=== PATIENT | male | born 1960 | race Caucasian/White ===

== ENCOUNTER 2019-05-11 10:04 | Inpatient (IN) ==
[2019-05-11] MEDS ORDERED: ONDANSETRON 4 MG/2 ML VIAL IV PRN (12:03)
[2019-05-11] MEDS ORDERED: ACETAMINOPHEN 325 MG TABLET PO PRN (12:03)
[2019-05-11 13:18] LABS: Basophils # 0.1 10*3/uL (0.0-0.2); Basophils % 0.9 % (0.0-0.8); Eosinophils # 0.6 10*3/uL (0.0-0.87); Eosinophils % 6.3 % (0.00-10.9); Hematocrit 27.6 VOL% (42.0-52.0); Hemoglobin 8.9 GM/DL (14.0-18.0); Immature Granulocytes % 1.1 %; Lymphocytes # 1.9 10*3/uL (1.4-4.0); Lymphocytes % 20.2 % (21.2-54.2); Mean Corpuscular HGB Conc 32.2 GM/DL (32-36); Mean Corpuscular Volume 105.7 FL (87-102); Mean Platelet Volume 10.4 FL (9.6-12.0); Monocytes % 11.5 % (1.7-12.7); Platelet Count 341 T/CUMM (130-400); Red Blood Count 2.61 MC/CUMM (3.8-5.5); Red Cell Distribution Width 12.5 % (9.3-17.3); White Blood Count 9.2 T/CUMM (4-12)
[2019-05-11 13:31] LABS: PT Patient Result 10.7 SECS (9.6-12.2)
[2019-05-11 13:53] LABS: Albumin 3.9 G/DL (3.4-5.0); Bilirubin,Total 0.8 MG/DL (0.2-1.0); Calcium 9.2 MG/DL (8.5-10.1); Osmolality,Calculated 312.8 MOS/KG (273-304); Total Protein 7.8 G/DL (6.4-8.3)
[2019-05-11 16:37] LABS: Hepatitis B Core IgM Quant < 0.05 Index; Hepatitis B Surface Ag Quant < 0.10 Index; Hepatitis B Surface Ag Result Negative (Negative); Hepatitis C Virus Ab Result Negative (Negative)
[2019-05-11 16:52] LABS: Apearance,Urine CLEAR (Clear); Bacteria,Urine Occasional /HPF (Few); Bilirubin,Urine Negative (Negative); Blood, Urine Small mg/dL (Negative); Glucose,Urine (UA) 50 mg/dL (Negative); Hyaline Casts,Urine 1 /LPF (0-3); Ketones,Urine Negative (Negative); Mucus,Urine Occasional /LPF (Occasional); Nitrite,Urine Negative (Negative); Protein,Urine 30 MG/DL; RBC,Urine 1 /HPF (0-4); Squamous Epithelial Cell,Urine Occasional /HPF (0-10); Urine Color Yellow (Yellow); Urine Specific Gravity 1.011 (1.001-1.035); Urine Urobilinogen < 2.0 EU/DL (0.2-1.0); WBC,Urine 2 /HPF (0-6)
[2019-05-11] MEDS: diphenhydrAMINE 2% CREAM 28 GM TUBE TOP PRN (18:09)
[2019-05-11] MEDS: SODIUM CHLORIDE 0.45% 1,000 ML IV SCH (18:09)
[2019-05-11 18:58] LABS: Protein/Creatinine Ratio,Urine 0.6 RATIO
[2019-05-11] MEDS: DOCUSATE SODIUM 100 MG CAPSULE PO SCH (20:55)
[2019-05-11] MEDS ORDERED: APIXABAN 5 MG TABLET PO SCH (21:00)
[2019-05-11] MEDS ORDERED: ATORVASTATIN 40 MG TABLET PO SCH (21:00)
[2019-05-12 05:56] LABS: Basophils # 0.1 10*3/uL (0.0-0.2); Basophils % 0.7 % (0.0-0.8); Eosinophils # 0.7 10*3/uL (0.0-0.87); Eosinophils % 8.1 % (0.00-10.9); Hematocrit 25.6 VOL% (42.0-52.0); Hemoglobin 8.2 GM/DL (14.0-18.0); Immature Granulocytes % 0.7 %; Immature Granulocytes Absolute 0.06 #; Lymphocytes # 1.9 10*3/uL (1.4-4.0); Lymphocytes % 23.3 % (21.2-54.2); Mean Corpuscular Volume 104.9 FL (87-102); Mean Platelet Volume 10.8 FL (9.6-12.0); Monocytes % 14.6 % (1.7-12.7); Neutrophils % 52.6 % (38.7-73.9); Platelet Count 307 T/CUMM (130-400); Red Blood Count 2.44 MC/CUMM (3.8-5.5); Red Cell Distribution Width 12.4 % (9.3-17.3); White Blood Count 8.2 T/CUMM (4-12)
[2019-05-12 06:21] LABS: Albumin 3.5 G/DL (3.4-5.0); Bilirubin,Total 1.1 MG/DL (0.2-1.0); Calcium 8.8 MG/DL (8.5-10.1); Osmolality,Calculated 316.1 MOS/KG (273-304); Total Protein 7.1 G/DL (6.4-8.3)
[2019-05-12] MEDS ORDERED: carvediloL 25 MG TABLET PO SCH (08:00)
[2019-05-12] MEDS ORDERED: DILTIAZEM CD 180 MG CAPSULE PO SCH (09:00)
[2019-05-12] MEDS ORDERED: ASPIRIN EC 81 MG TABLET PO SCH (09:00)
[2019-05-12] MEDS: FOLIC ACID 0.4 MG TABLET PO SCH (09:42)
[2019-05-12] MEDS: diphenhydrAMINE 2% CREAM 28 GM TUBE TOP PRN (09:43)
[2019-05-12] MEDS: PANTOPRAZOLE 40 MG TABLET PO SCH (09:43)
[2019-05-12] MEDS: predniSONE 5 MG TABLET PO SCH (09:43)
[2019-05-12] MEDS: DOCUSATE SODIUM 100 MG CAPSULE PO SCH ×2 (09:43→22:42)
[2019-05-12] MEDS: DILTIAZEM CD 180 MG CAPSULE PO SCH (21:31)
[2019-05-13 05:24] LABS: Basophils # 0.1 10*3/uL (0.0-0.2); Basophils % 0.9 % (0.0-0.8); Eosinophils # 0.6 10*3/uL (0.0-0.87); Eosinophils % 7.1 % (0.00-10.9); Hematocrit 25.5 VOL% (42.0-52.0); Hemoglobin 8.2 GM/DL (14.0-18.0); Immature Granulocytes % 0.6 %; Immature Granulocytes Absolute 0.05 #; Lymphocytes # 1.9 10*3/uL (1.4-4.0); Lymphocytes % 22.1 % (21.2-54.2); Mean Corpuscular HGB Conc 32.2 GM/DL (32-36); Mean Corpuscular Volume 105.8 FL (87-102); Mean Platelet Volume 10.6 FL (9.6-12.0); Monocytes % 14.3 % (1.7-12.7); Platelet Count 313 T/CUMM (130-400); Red Blood Count 2.41 MC/CUMM (3.8-5.5); Red Cell Distribution Width 12.3 % (9.3-17.3); White Blood Count 8.7 T/CUMM (4-12)
[2019-05-13 05:59] LABS: Albumin 3.6 G/DL (3.4-5.0); Osmolality,Calculated 314.1 MOS/KG (273-304); Total Protein 7.3 G/DL (6.4-8.3)
[2019-05-13] MEDS ORDERED: diphenhydrAMINE CAP 25 MG CAPSULE PO ONE (08:30)
[2019-05-13] MEDS: FOLIC ACID 0.4 MG TABLET PO SCH (09:19)
[2019-05-13] MEDS: PANTOPRAZOLE 40 MG TABLET PO SCH (09:20)
[2019-05-13] MEDS: DILTIAZEM CD 180 MG CAPSULE PO SCH ×2 (09:20→21:40)
[2019-05-13] MEDS: predniSONE 5 MG TABLET PO SCH (09:20)
[2019-05-13] MEDS: DOCUSATE SODIUM 100 MG CAPSULE PO SCH ×2 (09:20→21:41)
[2019-05-13 14:15] LABS: Myeloperoxidase Antibody < 0.2 U
[2019-05-13] MEDS: SODIUM CHLORIDE 0.45% 1,000 ML IV SCH ×2 (17:08→21:19)
[2019-05-14] MEDS: SODIUM CHLORIDE 0.45% 1,000 ML IV SCH ×2 (03:02→12:57)
[2019-05-14 05:33] LABS: Basophils # 0.1 10*3/uL (0.0-0.2); Basophils % 0.6 % (0.0-0.8); Eosinophils # 0.7 10*3/uL (0.0-0.87); Eosinophils % 7.6 % (0.00-10.9); Hematocrit 24.1 VOL% (42.0-52.0); Hemoglobin 7.8 GM/DL (14.0-18.0); Immature Granulocytes % 0.5 %; Immature Granulocytes Absolute 0.05 #; Lymphocytes % 20.9 % (21.2-54.2); Mean Corpuscular HGB Conc 32.4 GM/DL (32-36); Mean Corpuscular Volume 104.3 FL (87-102); Mean Platelet Volume 10.8 FL (9.6-12.0); Monocytes % 13.8 % (1.7-12.7); Neutrophils % 56.6 % (38.7-73.9); Platelet Count 310 T/CUMM (130-400); Red Blood Count 2.31 MC/CUMM (3.8-5.5); Red Cell Distribution Width 12.3 % (9.3-17.3); White Blood Count 9.6 T/CUMM (4-12)
[2019-05-14 05:50] LABS: Albumin 3.5 G/DL (3.4-5.0); Bilirubin,Total 1.3 MG/DL (0.2-1.0); Calcium 8.9 MG/DL (8.5-10.1); Osmolality,Calculated 309.2 MOS/KG (273-304)
[2019-05-14] MEDS ORDERED: SODIUM CHLORIDE 0.9% 1,000 ML IV SCH (08:00)
[2019-05-14] MEDS ORDERED: PROPOFOL 200 MG/20 ML VIAL IV ONE (09:00)
[2019-05-14] MEDS ORDERED: LIDOCAINE 2% 5 ML VIAL ONE (09:00)
[2019-05-14] MEDS: predniSONE 5 MG TABLET PO SCH (12:51)
[2019-05-14] MEDS: DOCUSATE SODIUM 100 MG CAPSULE PO SCH ×2 (12:51→21:21)
[2019-05-14] MEDS: DILTIAZEM CD 180 MG CAPSULE PO SCH ×2 (12:51→21:21)
[2019-05-14] MEDS: FOLIC ACID 0.4 MG TABLET PO SCH (12:51)
[2019-05-14] MEDS: PANTOPRAZOLE 40 MG TABLET PO SCH (12:56)
[2019-05-14] MEDS: diphenhydrAMINE CAP 25 MG CAPSULE PO PRN (12:56)
[2019-05-15] MEDS: SODIUM CHLORIDE 0.45% 1,000 ML IV SCH ×2 (02:18→15:46)
[2019-05-15 07:03] LABS: Basophils # 0.1 10*3/uL (0.0-0.2); Basophils % 0.5 % (0.0-0.8); Eosinophils # 0.7 10*3/uL (0.0-0.87); Hematocrit 22.9 VOL% (42.0-52.0); Hemoglobin 7.5 GM/DL (14.0-18.0); Immature Granulocytes % 0.7 %; Immature Granulocytes Absolute 0.07 #; Lymphocytes % 20.4 % (21.2-54.2); Mean Corpuscular HGB Conc 32.8 GM/DL (32-36); Mean Corpuscular Volume 104.1 FL (87-102); Mean Platelet Volume 10.6 FL (9.6-12.0); Monocytes % 12.6 % (1.7-12.7); Neutrophils % 58.8 % (38.7-73.9); Platelet Count 291 T/CUMM (130-400); Red Cell Distribution Width 12.5 % (9.3-17.3); White Blood Count 9.8 T/CUMM (4-12)
[2019-05-15 07:37] LABS: Albumin 3.5 G/DL (3.4-5.0); Bilirubin,Total 0.6 MG/DL (0.2-1.0); Calcium 8.8 MG/DL (8.5-10.1); Osmolality,Calculated 309.8 MOS/KG (273-304); Total Protein 6.8 G/DL (6.4-8.3)
[2019-05-15] MEDS: DILTIAZEM CD 180 MG CAPSULE PO SCH ×2 (08:32→21:31)
[2019-05-15] MEDS: PANTOPRAZOLE 40 MG TABLET PO SCH (08:32)
[2019-05-15] MEDS: DOCUSATE SODIUM 100 MG CAPSULE PO SCH ×2 (08:32→21:31)
[2019-05-15] MEDS: predniSONE 5 MG TABLET PO SCH (08:33)
[2019-05-15] MEDS: FOLIC ACID 0.4 MG TABLET PO SCH (08:33)
[2019-05-15] MEDS: diphenhydrAMINE CAP 25 MG CAPSULE PO PRN (08:36)
[2019-05-16] MEDS: SODIUM CHLORIDE 0.45% 1,000 ML IV SCH ×2 (05:16→19:36)
[2019-05-16 05:34] LABS: Basophils # 0.1 10*3/uL (0.0-0.2); Basophils % 0.5 % (0.0-0.8); Eosinophils # 0.7 10*3/uL (0.0-0.87); Eosinophils % 7.3 % (0.00-10.9); Hematocrit 21.5 VOL% (42.0-52.0); Immature Granulocytes % 0.6 %; Immature Granulocytes Absolute 0.06 #; Mean Corpuscular HGB Conc 32.6 GM/DL (32-36); Mean Corpuscular Volume 103.4 FL (87-102); Mean Platelet Volume 10.7 FL (9.6-12.0); Monocytes % 12.8 % (1.7-12.7); Neutrophils % 58.8 % (38.7-73.9); Platelet Count 290 T/CUMM (130-400); Red Blood Count 2.08 MC/CUMM (3.8-5.5); Red Cell Distribution Width 12.3 % (9.3-17.3); White Blood Count 10.2 T/CUMM (4-12)
[2019-05-16 05:51] LABS: Calcium 8.6 MG/DL (8.5-10.1); Osmolality,Calculated 307.4 MOS/KG (273-304)
[2019-05-16] MEDS: PANTOPRAZOLE 40 MG TABLET PO SCH (08:38)
[2019-05-16] MEDS: FOLIC ACID 0.4 MG TABLET PO SCH (08:38)
[2019-05-16] MEDS: predniSONE 5 MG TABLET PO SCH (08:38)
[2019-05-16] MEDS: DOCUSATE SODIUM 100 MG CAPSULE PO SCH ×2 (08:38→20:59)
[2019-05-16] MEDS: DILTIAZEM CD 180 MG CAPSULE PO SCH ×2 (08:38→20:59)
[2019-05-16] MEDS: diphenhydrAMINE CAP 25 MG CAPSULE PO PRN (08:40)
[2019-05-16 11:28] LABS: % Iron Saturation 46.9 % (18-50)
[2019-05-17 05:51] LABS: Basophils # 0.1 10*3/uL (0.0-0.2); Basophils % 0.7 % (0.0-0.8); Eosinophils # 0.6 10*3/uL (0.0-0.87); Eosinophils % 6.4 % (0.00-10.9); Hematocrit 20.6 VOL% (42.0-52.0); Hemoglobin 6.7 GM/DL (14.0-18.0); Immature Granulocytes % 0.7 %; Immature Granulocytes Absolute 0.06 #; Lymphocytes # 1.9 10*3/uL (1.4-4.0); Mean Corpuscular HGB Conc 32.5 GM/DL (32-36); Mean Platelet Volume 10.7 FL (9.6-12.0); Monocytes % 11.7 % (1.7-12.7); Neutrophils % 59.5 % (38.7-73.9); Platelet Count 280 T/CUMM (130-400); Red Blood Count 1.98 MC/CUMM (3.8-5.5); Red Cell Distribution Width 12.1 % (9.3-17.3); White Blood Count 9.1 T/CUMM (4-12)
[2019-05-17 06:11] LABS: Calcium 8.9 MG/DL (8.5-10.1); Osmolality,Calculated 304.1 MOS/KG (273-304)
[2019-05-17 06:21] LABS: Macrocytosis Slight; Platelet Estimate Normal
[2019-05-17] MEDS ORDERED: POTASSIUM CHLORIDE 20 MEQ TABLET PO ONE (08:22)
[2019-05-17] MEDS: DOCUSATE SODIUM 100 MG CAPSULE PO SCH ×2 (08:40→20:58)
[2019-05-17] MEDS: predniSONE 5 MG TABLET PO SCH (08:41)
[2019-05-17] MEDS: PANTOPRAZOLE 40 MG TABLET PO SCH (08:41)
[2019-05-17] MEDS: DILTIAZEM CD 180 MG CAPSULE PO SCH ×2 (08:41→20:58)
[2019-05-17] MEDS: diphenhydrAMINE CAP 25 MG CAPSULE PO PRN (08:44)
[2019-05-17] MEDS ORDERED: SODIUM CHLORIDE 0.9% 1,000 ML IV PRN (09:45)
[2019-05-17] MEDS: FOLIC ACID 0.4 MG TABLET PO SCH (10:10)
[2019-05-17 18:36] LABS: Hematocrit 26.5 VOL% (42.0-52.0); Hemoglobin 8.7 GM/DL (14.0-18.0)
[2019-05-17] MEDS: SODIUM CHLORIDE 0.45% 1,000 ML IV SCH (19:42)
[2019-05-18 05:57] LABS: Basophils # 0.1 10*3/uL (0.0-0.2); Basophils % 0.5 % (0.0-0.8); Eosinophils # 0.6 10*3/uL (0.0-0.87); Hematocrit 26.4 VOL% (42.0-52.0); Hemoglobin 8.7 GM/DL (14.0-18.0); Immature Granulocytes % 0.3 %; Immature Granulocytes Absolute 0.03 #; Lymphocytes # 1.9 10*3/uL (1.4-4.0); Lymphocytes % 20.8 % (21.2-54.2); Mean Corpuscular Volume 98.9 FL (87-102); Mean Platelet Volume 10.8 FL (9.6-12.0); Monocytes % 12.3 % (1.7-12.7); Neutrophils % 60.1 % (38.7-73.9); Platelet Count 242 T/CUMM (130-400); Red Blood Count 2.67 MC/CUMM (3.8-5.5); Red Cell Distribution Width 15.4 % (9.3-17.3); White Blood Count 9.2 T/CUMM (4-12)
[2019-05-18 06:17] LABS: Calcium 8.9 MG/DL (8.5-10.1); Osmolality,Calculated 299.1 MOS/KG (273-304)
[2019-05-18] MEDS ORDERED: carvediloL 25 MG TABLET PO SCH (08:00)
[2019-05-18] MEDS ORDERED: POTASSIUM CHLORIDE 20 MEQ TABLET PO ONE (09:00)
[2019-05-18] MEDS: SODIUM CHLORIDE 0.45% 1,000 ML IV SCH (09:16)
[2019-05-18] MEDS: DILTIAZEM CD 180 MG CAPSULE PO SCH (09:16)
[2019-05-18] MEDS: DOCUSATE SODIUM 100 MG CAPSULE PO SCH (09:16)
[2019-05-18] MEDS: FOLIC ACID 0.4 MG TABLET PO SCH (09:17)
[2019-05-18] MEDS: predniSONE 5 MG TABLET PO SCH (09:17)
[2019-05-18] MEDS: PANTOPRAZOLE 40 MG TABLET PO SCH (09:17)
[2019-05-18 09:18] VITALS: BP 174/66
== END 2019-05-18 12:20 | disposition home or self-care (01) | DRG 683 ==
LOC: N.ULTRA 10:04 → N.2E 12:00
PROVIDERS: ADMIT Family Medicine; ATTEND Family Medicine

== ENCOUNTER 2019-09-13 10:45 | Inpatient (IN) ==
[2019-09-13] MEDS ORDERED: ONDANSETRON 4 MG/2 ML VIAL IV PRN (10:56)
[2019-09-13] MEDS ORDERED: ACETAMINOPHEN 325 MG TABLET PO PRN (10:56)
[2019-09-13] MEDS ORDERED: DOCUSATE SODIUM 100 MG CAPSULE PO PRN (10:56)
[2019-09-13 11:43] LABS: Basophils # 0.1 10*3/uL (0.0-0.2); Basophils % 0.4 % (0.0-0.8); Eosinophils # 0.1 10*3/uL (0.0-0.87); Hematocrit 44.3 VOL% (42.0-52.0); Hemoglobin 14.7 GM/DL (14.0-18.0); Immature Granulocytes % 0.8 %; Lymphocytes % 15.3 % (21.2-54.2); Mean Corpuscular HGB Conc 33.2 GM/DL (32-36); Mean Corpuscular Volume 95.1 FL (87-102); Mean Platelet Volume 10.1 FL (9.6-12.0); Monocytes % 9.9 % (1.7-12.7); Neutrophils % 72.6 % (38.7-73.9); Platelet Count 264 T/CUMM (130-400); Red Blood Count 4.66 MC/CUMM (3.8-5.5); Red Cell Distribution Width 12.9 % (9.3-17.3)
[2019-09-13 11:52] LABS: INR 1.1; PT Patient Result 11.4 SECS (9.8-11.9)
[2019-09-13 12:07] LABS: Albumin 4.1 G/DL (3.4-5.0); Bilirubin,Total 0.9 MG/DL (0.2-1.0); Calcium 9.9 MG/DL (8.5-10.1); Osmolality,Calculated 274.1 MOS/KG (273-304); Total Protein 8.4 G/DL (6.4-8.3)
[2019-09-13] MEDS: SODIUM CHLORIDE 0.9% 1,000 ML IV SCH (12:27)
[2019-09-13 15:23] LABS: Apearance,Urine CLEAR (Clear); Bilirubin,Urine Negative (Negative); Blood, Urine Negative (Negative); Glucose,Urine (UA) Negative (Negative); Hyaline Casts,Urine 8 /LPF (0-3); Ketones,Urine Negative (Negative); Mucus,Urine Few /LPF (Occasional); Nitrite,Urine Negative (Negative); Protein,Urine Negative; RBC,Urine <1 /HPF (0-4); Squamous Epithelial Cell,Urine Occasional /HPF (0-10); Urine Color Yellow (Yellow); Urine Specific Gravity 1.019 (1.001-1.035); Urine Urobilinogen < 2.0 EU/DL (0.2-1.0); WBC,Urine 3 /HPF (0-6)
[2019-09-13] MEDS: carvediloL 12.5 MG TABLET PO SCH (17:06)
[2019-09-13] MEDS: carvediloL 25 MG TABLET PO SCH (17:06)
[2019-09-13] MEDS: IMMUNE GLOBULIN 10% 20 GM, IMMUNE GLOBULIN 10% 10 GM in PREMIX 1 EACH IV SCH (18:30)
[2019-09-13 18:53] LABS: Rheumatoid Factor < 15 IU/ML (<15)
[2019-09-13] MEDS: ATORVASTATIN 40 MG TABLET PO SCH (20:41)
[2019-09-13] MEDS ORDERED: predniSONE 5 MG TABLET PO PRN (21:26)
[2019-09-13] MEDS ORDERED: Etanercept [Enbrel Sureclick] 50 MG SUBCUT SCH (21:30)
[2019-09-14] MEDS: traMADol 50 MG TABLET PO PRN ×2 (00:23→23:42)
[2019-09-14] MEDS: carvediloL 12.5 MG TABLET PO SCH ×2 (10:50→16:53)
[2019-09-14] MEDS: MULTIVITAMIN (CENTRUM) TABLET PO SCH (10:50)
[2019-09-14] MEDS: DOCUSATE SODIUM 100 MG CAPSULE PO SCH ×2 (10:50→20:35)
[2019-09-14] MEDS: carvediloL 25 MG TABLET PO SCH ×2 (10:50→16:52)
[2019-09-14] MEDS: DILTIAZEM CD 180 MG CAPSULE PO SCH (10:51)
[2019-09-14] MEDS: FOLIC ACID 0.4 MG TABLET PO SCH (10:52)
[2019-09-14] MEDS: PANTOPRAZOLE 40 MG TABLET PO SCH (10:53)
[2019-09-14] MEDS: MULTIVITAMIN (BEROCCA) TABLET PO SCH (10:53)
[2019-09-14] MEDS ORDERED: PRASUGREL 10 MG TABLET PO ONE (15:30)
[2019-09-14] MEDS: SODIUM CHLORIDE 0.9% 1,000 ML IV SCH (18:18)
[2019-09-14] MEDS: IMMUNE GLOBULIN 10% 20 GM, IMMUNE GLOBULIN 10% 10 GM in PREMIX 1 EACH IV SCH (18:51)
[2019-09-14] MEDS: TEMAZEPAM 15 MG CAPSULE PO SCH (20:34)
[2019-09-14] MEDS: ATORVASTATIN 40 MG TABLET PO SCH (20:34)
[2019-09-14] MEDS: APIXABAN 2.5 MG TABLET PO SCH (20:34)
[2019-09-14] MEDS ORDERED: TICAGRELOR 90 MG TABLET PO SCH (21:00)
[2019-09-15] MEDS: SODIUM CHLORIDE 0.9% 1,000 ML IV SCH ×2 (04:40→22:07)
[2019-09-15 06:36] LABS: Basophils # 0.1 10*3/uL (0.0-0.2); Basophils % 0.6 % (0.0-0.8); Eosinophils # 0.3 10*3/uL (0.0-0.87); Eosinophils % 3.2 % (0.00-10.9); Hematocrit 38.7 VOL% (42.0-52.0); Hemoglobin 12.9 GM/DL (14.0-18.0); Immature Granulocytes % 0.5 %; Immature Granulocytes Absolute 0.04 #; Lymphocytes # 1.5 10*3/uL (1.4-4.0); Lymphocytes % 17.5 % (21.2-54.2); Mean Corpuscular HGB Conc 33.3 GM/DL (32-36); Mean Corpuscular Volume 94.6 FL (87-102); Mean Platelet Volume 10.2 FL (9.6-12.0); Monocytes % 14.6 % (1.7-12.7); Neutrophils % 63.6 % (38.7-73.9); Platelet Count 215 T/CUMM (130-400); Red Blood Count 4.09 MC/CUMM (3.8-5.5); Red Cell Distribution Width 12.6 % (9.3-17.3); White Blood Count 8.6 T/CUMM (4-12)
[2019-09-15 07:03] LABS: Macrocytosis Slight; Osmolality,Calculated 268.2 MOS/KG (273-304)
[2019-09-15 07:04] LABS: Platelet Estimate Normal
[2019-09-15] MEDS: MULTIVITAMIN (CENTRUM) TABLET PO SCH (08:43)
[2019-09-15] MEDS: PANTOPRAZOLE 40 MG TABLET PO SCH (08:44)
[2019-09-15] MEDS: DOCUSATE SODIUM 100 MG CAPSULE PO SCH ×2 (08:44→21:23)
[2019-09-15] MEDS: MULTIVITAMIN (BEROCCA) TABLET PO SCH (08:44)
[2019-09-15] MEDS: PRASUGREL 10 MG TABLET PO SCH (08:44)
[2019-09-15] MEDS: FOLIC ACID 0.4 MG TABLET PO SCH (08:44)
[2019-09-15] MEDS: APIXABAN 2.5 MG TABLET PO SCH ×2 (08:44→21:23)
[2019-09-15] MEDS: DILTIAZEM CD 180 MG CAPSULE PO SCH (08:44)
[2019-09-15] MEDS: carvediloL 25 MG TABLET PO SCH ×2 (08:44→17:14)
[2019-09-15] MEDS: carvediloL 12.5 MG TABLET PO SCH ×2 (08:44→17:14)
[2019-09-15] MEDS: LOSARTAN 25 MG TABLET PO SCH (10:34)
[2019-09-15] MEDS: IMMUNE GLOBULIN 10% 20 GM, IMMUNE GLOBULIN 10% 10 GM in PREMIX 1 EACH IV SCH (17:29)
[2019-09-15] MEDS: TEMAZEPAM 15 MG CAPSULE PO SCH (21:23)
[2019-09-15] MEDS: ATORVASTATIN 40 MG TABLET PO SCH (21:23)
[2019-09-16] MEDS: traMADol 50 MG TABLET PO PRN (00:10)
[2019-09-16] MEDS: PRASUGREL 10 MG TABLET PO SCH (08:38)
[2019-09-16] MEDS: FOLIC ACID 0.4 MG TABLET PO SCH (08:38)
[2019-09-16] MEDS: carvediloL 12.5 MG TABLET PO SCH ×2 (08:39→16:41)
[2019-09-16] MEDS: MULTIVITAMIN (BEROCCA) TABLET PO SCH (08:39)
[2019-09-16] MEDS: DILTIAZEM CD 180 MG CAPSULE PO SCH (08:39)
[2019-09-16] MEDS: carvediloL 25 MG TABLET PO SCH ×2 (08:39→16:41)
[2019-09-16] MEDS: MULTIVITAMIN (CENTRUM) TABLET PO SCH (08:39)
[2019-09-16] MEDS: DOCUSATE SODIUM 100 MG CAPSULE PO SCH ×2 (08:40→21:15)
[2019-09-16] MEDS: PANTOPRAZOLE 40 MG TABLET PO SCH (08:40)
[2019-09-16] MEDS: LOSARTAN 25 MG TABLET PO SCH (08:40)
[2019-09-16] MEDS: APIXABAN 2.5 MG TABLET PO SCH ×2 (08:40→21:15)
[2019-09-16] MEDS ORDERED: MAGNESIUM HYDROXIDE SUSP 30 ML UDCUP PO PRN (11:18)
[2019-09-16] MEDS: SERTRALINE 50 MG TABLET PO SCH (11:31)
[2019-09-16] MEDS: IMMUNE GLOBULIN 10% 20 GM, IMMUNE GLOBULIN 10% 10 GM in PREMIX 1 EACH IV SCH (18:52)
[2019-09-16] MEDS: SODIUM CHLORIDE 0.9% 1,000 ML IV SCH (19:30)
[2019-09-16] MEDS: TEMAZEPAM 15 MG CAPSULE PO SCH (21:15)
[2019-09-16] MEDS: ATORVASTATIN 40 MG TABLET PO SCH (21:15)
[2019-09-17] MEDS: FOLIC ACID 0.4 MG TABLET PO SCH (09:26)
[2019-09-17] MEDS: LOSARTAN 25 MG TABLET PO SCH (09:27)
[2019-09-17] MEDS: carvediloL 12.5 MG TABLET PO SCH (09:27)
[2019-09-17] MEDS: DILTIAZEM CD 180 MG CAPSULE PO SCH (09:27)
[2019-09-17] MEDS: PRASUGREL 10 MG TABLET PO SCH (09:27)
[2019-09-17] MEDS: carvediloL 25 MG TABLET PO SCH (09:27)
[2019-09-17] MEDS: APIXABAN 2.5 MG TABLET PO SCH (09:28)
[2019-09-17] MEDS: PANTOPRAZOLE 40 MG TABLET PO SCH (09:28)
[2019-09-17] MEDS: SERTRALINE 50 MG TABLET PO SCH (09:28)
[2019-09-17] MEDS: DOCUSATE SODIUM 100 MG CAPSULE PO SCH (09:28)
[2019-09-17] MEDS: MULTIVITAMIN (BEROCCA) TABLET PO SCH (09:28)
[2019-09-17] MEDS: MULTIVITAMIN (CENTRUM) TABLET PO SCH (09:28)
[2019-09-17] MEDS ORDERED: BISACODYL 10 MG SUPP RECTAL ONE (09:51)
[2019-09-17] MEDS: IMMUNE GLOBULIN 10% 20 GM, IMMUNE GLOBULIN 10% 10 GM in PREMIX 1 EACH IV SCH (13:18)
[2019-09-17] MEDS ORDERED: LINACLOTIDE 145 MCG CAPSULE PO ONE (14:31)
[2019-09-17 16:50] VITALS: BP 177/76
== END 2019-09-17 16:53 | DRG 95 ==
LOC: N.TELES → OBSVTOIN 11:02
PROVIDERS: ADMIT Family Medicine; ATTEND Family Medicine